=== PATIENT | female | born 1990 | race American Indian/Alaskan Native ===

== ENCOUNTER 2018-06-05 06:00 | Day surgery (SDC) | payer MEDICAID, OTHER ==
[~2018-06-05 06:00] MED LIST: ANCEF/STERILE WATER 2 GM/20 ML 2 GM/20 ML SYRINGE IV NR; NACL 0.9% 1000 ML 1,000 ML IV SCH; NEURONTIN PO SCH
[2018-06-05] MEDS ORDERED: VERSED ONE (07:08)
[2018-06-05] MEDS ORDERED: XYLOCAINE MPF 2% ONE (07:16)
[2018-06-05] MEDS ORDERED: DIPRIVAN 10 MG/ML IV ONE (07:16)
[2018-06-05] MEDS ORDERED: SUBLIMAZE ONE (07:16)
[2018-06-05] MEDS ORDERED: XYLOCAINE 1%/ EPI 1:100,000 INFILTRATI ONE ×2 (07:18→08:00)
[2018-06-05] MEDS ORDERED: MARCAINE 0.5% INFILTRATI ONE ×2 (07:18→08:00)
--- NOTE | 2018-06-05 07:27 | Short Stay Summary ---
Short Stay Documentation Date of service: 06/05/18 - History H&P: obtained from office - Allergies and Medications Current Medications: Allergies No Known Allergies Allergy (Verified 03/07/18 03:40) Home Medications Medication Instructions Recorded Confirmed Last Taken Type No Known Home Medications [No 05/30/18 05/30/18 Unknown History Reported Home Medications] Active Medications Gabapentin (Neurontin) 600 mg PO PREOP KATLYN Last Admin: 06/05/18 06:20 Dose: 600 mg Documented by: Cefazolin Sodium (Ancef/Sterile Water 2 Gm/20 Ml) 2 gm in 20 mls @ 80 mls/hr IV PREOP NR; Protocol Stop: 06/05/18 23:59 Sodium Chloride (Nacl 0.9% 1000 Ml) 1,000 mls @ 75 mls/hr IV DIRECT KATLYN Last Admin: 06/05/18 06:35 Dose: 75 mls/hr Documented by: - Physical exam General appearance: no acute distress Lungs: Normal air movement Gastrointestinal: no tenderness, no distended, no guarding Neurological: Normal speech - Brief post op/procedure progress note Date of procedure: 06/05/18 (Dictation:[id number]) Pre-op diagnosis: ventral hernia Post-op diagnosis: same Procedure: lap ventral hernia repair with mesh Anesthesia: GETA Findings: two small fascial defects Surgeon: JIE BLAKE Brazer Helper Induction: PABLO BURKS Estimated blood loss: minimal Pathology: list (hernia sac and contents) Specimen disposition: to lab Condition: stable - Hospital course Hospital course: uneventful - Disposition Condition at discharge: Stable Disposition: DC- TO HOME OR SELFCARE Short Stay Discharge Plan Activity: other (no driving until cleared by surgeon) Diet: regular Wound: open to air, keep clean and dry, other (apply ice for 10-15min; 4-5 times a day. May shower tomorrow. Pat dry wounds. ) Special Instructions: no heavy lifting (or strenuous activity for 6 weeks) Follow up with: VELVET CALI MD [Primary Care Provider] - 7 Days JIE BLAKE MD [Staff Physician] - 14 Days Forms: Outpatient Surgery DC Inst. Prescriptions: HYDROcodone/ACETAMINOPHEN [[place]ure 5-325 Tablet] 2 each PO Q6H PRN #40 tablet PRN Reason: Pain , Severe (7-10)
[2018-06-05] MEDS ORDERED: DILAUDID IV PRN (07:32)
--- NOTE | 2018-06-05 07:35 | Anesthesia Day of Surgery ---
Anesthesia Day of Surgery - Day of Surgery Patient Examined: Yes Patient H&P Reviewed: Yes Patient is NPO: Yes Beta Blockers: No Cardiac Clearance: No Pulmonary Clearance: No Justino's Test: N/A
--- NOTE | 2018-06-05 07:35 | Anesthesia Consultation ---
Anesthesia Consult and Med Hx Date of service: 06/05/18 - Airway Anesthetic Teeth Evaluation: Good ROM Head & Neck: Adequate Mental/Hyoid Distance: Adequate Mallampati Class: Class II Intubation Access Assessment: Probably Good - Pulmonary Exam CTA: Yes - Cardiac Exam Cardiac Exam: No Murmur - Pre-Operative Health Status ASA Pre-Surgery Classification: ASA2 Proposed Anesthetic Plan: General - Pulmonary Hx Smoking: No Hx Asthma: Yes (NO MEDS) COPD: No Hx Pneumonia: No Hx Sleep Apnea: No (LEON PRE SCREEN NEGATIVE) - Cardiovascular System Hx Hypertension: No - Central Nervous System Hx Seizures: No Hx Psychiatric Problems: No - Endocrine Hx Renal Disease: No Hx End Stage Renal Disease: No Hx Hypothyroidism: No Hx Hyperthyroidism: No - Hematic Hx Anemia: No Hx Sickle Cell Disease: No - Other Systems Hx Alcohol Use: No Hx Cancer: No
[2018-06-05] MEDS ORDERED: NACL 0.9% IR ONE (08:00)
[2018-06-05] MEDS ORDERED: LACTATED RINGERS 1,000 ML IV SCH (08:00)
[2018-06-05] MEDS ORDERED: DECADRON ONE (08:07)
[2018-06-05] MEDS ORDERED: ZEMURON IV ONE (08:07)
[2018-06-05] MEDS ORDERED: ZOFRAN ONE (08:08)
[2018-06-05] MEDS ORDERED: ROBINUL ONE (08:08)
[2018-06-05] MEDS ORDERED: BLOXIVERZ ONE (08:08)
[2018-06-05 09:21] VITALS: BP 108/60
--- NOTE | 2018-06-05 09:43 | Operative Report ---
PREOPERATIVE DIAGNOSIS: Symptomatic ventral hernia. POSTOPERATIVE DIAGNOSIS: Symptomatic ventral hernia. PROCEDURE: Laparoscopic ventral hernia repair with mesh. ATTENDING PHYSICIAN: Dong Phillips MD RESIDENT CAREGIVER: Dr. Westfall. ANESTHESIA: General. ESTIMATED BLOOD LOSS: Minimal. FLUIDS: 700 mL. FINDINGS: The patient ended up having two fascial defects. The primary one was approximately 3 cm in diameter. Inferior to that there was another smaller defect that was about a centimeter in diameter. Both were in close proximity. There was a hernia sac and preperitoneal fat that had eviscerated through. There was also the falciform ligament that was going in that general area. IMPLANT: Large Ventralex Mesh. DRAINS: None. COMPLICATIONS: None. DISPOSITION: Stable, transferred to Recovery Room. INDICATIONS: This is a 27-year-old female, who presented to the office with complaints of a symptomatic bulge in the mid portion of her abdomen. The patient was assessed to have a ventral hernia. The patient was felt to be a good candidate for laparoscopic repair. Procedure, risks, benefits were explained to the patient. Risks included but were not limited to infection, bleeding, pain, injury to surrounding structures, possible need for further procedures in the future. The patient was then consented. DESCRIPTION OF PROCEDURE: The patient was brought to the operating room and placed in supine position. After adequate general anesthesia was established, the patient was prepped and draped in the usual sterile fashion. Antibiotics had been administered prior to the start of the case. SCDs were in place. Time-out was called. I placed a Veress needle in left upper quadrant. We were able to insufflate in the first attempt. I placed a 5 mm port in the left lower quadrant and using the Optiview technique, I entered the peritoneal cavity safely. We examined the area of the Veress needle. There was no evidence of any injury to the underlying structures. The Veress needle was removed. In that location, I placed another 5 mm port under direct vision and then a third 5 mm port was placed in the suprapubic area in the midline. We identified the fascial defect. The falciform ligament was entering that area along with herniated fat tissue. We divided the falciform ligament with the Harmonic scalpel and then we reduced all the hernia contents in the sac. We divided the attachments with the Harmonic scalpel. Thereafter, we made a small transverse incision over the center of the herniated skin. We inserted a large Ventralex mesh and then removed the hernia sac and contents that we had previously excised. Using the SorbaFix tacker, we secured the mesh to the anterior abdominal wall and then with an 0 Vicryl stitch, we secured the tails of the mesh to the adjacent fascia with a single stitch. The mesh appeared to lay very well. There was no evidence of any injury to all underlying vital structures. All ports were removed. Please note that the mesh covered both the large defect and the small adjacent defect. We were pleased with the final appearance. All ports were removed. The abdomen was desufflated. Additional local was injected. We used a combination of 1% lidocaine with epinephrine and 0.5% Marcaine. We closed the subcutaneous tissue over the mesh with the 4-0 Vicryl stitch and then closed the skin sites with 4-0 Vicryl subcuticular stitch. The skin was cleaned and dried. Dermabond was placed. The patient tolerated procedure well. There were no complications. All counts were correct at the end of the case. No family was available in the waiting area. JOB# [id number] ASHER/ROMI
== END 2018-06-05 06:01 | disposition home or self-care (01) ==
LOC: OR 06:00
PROVIDERS: ATTEND Surgery
DX: K43.9 Ventral hernia without obstruction or gangrene (principal); Z79.899 Other long term (current) drug therapy; J45.909 Unspecified asthma, uncomplicated; Z82.49 Family history of ischemic heart disease and other diseases of the circulatory system; Z80.8 Family history of malignant neoplasm of other organs or systems
CPT/HCPCS: 49652; 81025; 88302; C1781; J0690; J1100; J1170; J2250; J2405; J2704; J2710; J3010; J7030